=== PATIENT | female | born 1960 | race American Indian/Alaskan Native ===

== ENCOUNTER 2017-03-23 09:31 | Inpatient (IN) | payer MEDICARE ==
[~2017-03-23 09:31] MED LIST: ANCEF/STERILE WATER 2 GM/20 ML 2 GM/20 ML SYRINGE IV NR; APRESOLINE IV PRN; LOVENOX SUB-Q NR; MYLICON PO PRN; REGLAN IV PRN; TRANSDERM-SCOP TD SCH; ZOFRAN IV PRN
[2017-03-23] MEDS: LACTATED RINGERS 1,000 ML IV SCH ×2 (10:25→23:40)
[2017-03-23] MEDS ORDERED: FLAGYL 500 MG/100 ML 500 MG/100 ML BAG IV NR ×2 (10:30→11:00)
[2017-03-23] MEDS ORDERED: PEPCID IV NR (11:00)
[2017-03-23] MEDS ORDERED: XYLOCAINE 1% 20 mL ONE (11:06)
[2017-03-23] MEDS ORDERED: MARCAINE 0.5% 30 ML INFILTRATI ONE (11:07)
--- NOTE | 2017-03-23 11:11 | Anesthesia Consultation ---
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
[2017-03-23] MEDS ORDERED: MORPHINE IV PRN (11:12)
--- NOTE | 2017-03-23 11:12 | Anesthesia Day of Surgery ---
Anesthesia Day of Surgery - Day of Surgery Patient Examined: Yes Patient H&P Reviewed: Yes Patient is NPO: Yes
[2017-03-23] MEDS ORDERED: SUBLIMAZE ONE (11:51)
[2017-03-23] MEDS ORDERED: DIPRIVAN 10 MG/ML IV ONE (11:51)
[2017-03-23] MEDS ORDERED: XYLOCAINE MPF 2% ONE (11:52)
[2017-03-23] MEDS ORDERED: ZOFRAN ONE (11:52)
[2017-03-23] MEDS ORDERED: DECADRON ONE (11:52)
[2017-03-23] MEDS ORDERED: ROBINUL ONE ×2 (11:52)
[2017-03-23] MEDS ORDERED: ZEMURON IV ONE (11:52)
[2017-03-23] MEDS ORDERED: NEOSTIGMINE ONE (11:53)
[2017-03-23] MEDS ORDERED: VERSED IV NR (12:00)
[2017-03-23] MEDS ORDERED: NEO SYNEPHRINE/NS Syringe(OR USE) IV ONE (12:00)
[2017-03-23] MEDS ORDERED: ePHEDrine SULFATE ONE (13:39)
[2017-03-23] MEDS ORDERED: XYLOCAINE 1% 20 mL INFILTRATI ONE (13:51)
[2017-03-23] MEDS ORDERED: NACL 0.9% IR ONE (13:51)
[2017-03-23] MEDS ORDERED: MARCAINE 0.5% INFILTRATI ONE (13:52)
[2017-03-23] MEDS ORDERED: PROAIR IH ONE (13:54)
[2017-03-23] MEDS ORDERED: NACL 0.9% 1000 ML IR ONE (14:31)
[2017-03-23] MEDS ORDERED: TORADOL ONE (14:58)
[2017-03-23] MEDS ORDERED: DILAUDID IV PRN (15:48)
--- NOTE | 2017-03-23 15:58 | Post Anesthesia Evaluation ---
- Post Anesthesia Evaluation Patient Participated: Yes Airway Patent: Yes Stable Respiratory Function: Yes Nausea/Vomiting: No Temp > 96.8F: Yes Pain Manageable: Yes Adequeate Hydration: Yes Anesthesia Complications: No Block Receding Appropriately: Not Applicable Patient on Ventilator: No
[2017-03-23] MEDS: DILAUDID IV PRN ×2 (16:08→16:30)
[2017-03-24] MEDS: LACTATED RINGERS 1,000 ML IV SCH (06:36)
[2017-03-24 09:36] LABS: Basophils % (Auto) 0.4 % (0.0-1.8); Eosinophils % (Auto) 0.2 % (0.0-4.3); Hematocrit 36.7 % (30.3-42.9); Hemoglobin 11.8 gm/dl (10.1-14.3); Mean Corpuscular HGB Conc 32 % (30-34); Mean Corpuscular Hemoglobin 29 pg (28-32); Mean Corpuscular Volume 91 fl (79-97); Platelet Count 349 K/mm3 (140-440); Red Blood Count 4.04 M/mm3 (3.65-5.03); Red Cell Distribution Width 12.8 % (13.2-15.2); White Blood Count 9.4 K/mm3 (4.5-11.0)
[2017-03-24 09:51] LABS: Albumin 3.5 g/dL (3.9-5); Albumin/Globulin Ratio 0.9 %; Alkaline Phosphatase 92 units/L (35-129); Anion Gap 20 mmol/L; BUN/Creatinine Ratio 14; Blood Urea Nitrogen 10 mg/dL (7-17); Calcium 8.9 mg/dL (8.4-10.2); Carbon Dioxide 21 mmol/L (22-30); Chloride 100.8 mmol/L (98-107); Glucose 97 mg/dL (65-100); Potassium 4.8 mmol/L (3.6-5.0); Sodium 137 mmol/L (137-145); Total Protein 7.4 g/dL (6.3-8.2)
[2017-03-24 09:58] LABS: Alanine Aminotransferase 20 units/L (7-56)
[2017-03-24] MEDS ORDERED: LOVENOX SUB-Q SCH (10:00)
[2017-03-24 17:07] VITALS: BP 129/74
--- NOTE | 2017-03-24 17:29 | Discharge Summary ---
Providers - Providers Date of Admission: 03/23/17 09:31 Attending physician: NADER DIAL Primary care physician: [employer] DIRECT[employer] Hospitalization Reason for admission: surgery Procedures: lap gastric bypass Hospital course: 56 y.o. F admitted for laparoscopic gastric bypass. She tolerated the procedure well. On POD 1 she tolerated liquids and her pain was controlled. She denies n/ v. She ambulated well after surgery. She was discharged without issues. Disposition: DC-01 TO HOME OR SELFCARE Core Measure Documentation - Palliative Care Palliative Care/ Comfort Measures: Not Applicable - Core Measures Any of the following diagnoses?: none Exam - Physical Exam Narrative exam: Gen: A+Ox3 resp: equal rise and fall of chest abd: obese, soft, tender at incision sites. no rebound on guarding . incision sites cdi ext: no c/c/e - Constitutional Vitals: Temp Pulse Resp BP Pulse Ox 97.8 F 72 20 129/74 93 03/24/17 16:13 03/24/17 16:13 03/24/17 16:13 03/24/17 16:13 03/24/17 16:13 Plan Activity: other (no lifting >15lbs for 6 weeks ) Diet: clear liquids (sugar free ) Wound: keep clean and dry Additional Instructions: follow up for wellness check Follow up with: LIZA FISH MD [Primary Care Provider] - 7 Days
== END 2017-03-24 18:00 | disposition home or self-care (01) | DRG 327 ==
LOC: 3A 09:31 → 3B-SURG 16:01
PROVIDERS: ADMIT Specialist; ATTEND Specialist
PROC: 0DV64CZ Restriction of Stomach with Extraluminal Device, Percutaneous Endoscopic Approach (ICD-10-PCS; principal; 2017-03-23)
PROC: 0BQT4ZZ Repair Diaphragm, Percutaneous Endoscopic Approach (ICD-10-PCS; 2017-03-23)
PROC: 5A09357 Assistance with Respiratory Ventilation, Less than 24 Consecutive Hours, Continuous Positive Airway Pressure (ICD-10-PCS; 2017-03-23)
DX: K44.9 Diaphragmatic hernia without obstruction or gangrene (principal); Z68.41 Body mass index [BMI] 40.0-44.9, adult; E66.01 Morbid (severe) obesity due to excess calories; G43.909 Migraine, unspecified, not intractable, without status migrainosus; G47.33 Obstructive sleep apnea (adult) (pediatric); I10 Essential (primary) hypertension; M19.90 Unspecified osteoarthritis, unspecified site; F32.9 Major depressive disorder, single episode, unspecified; F41.9 Anxiety disorder, unspecified; E27.9 Disorder of adrenal gland, unspecified; K21.9 Gastro-esophageal reflux disease without esophagitis; Z87.11 Personal history of peptic ulcer disease; Z90.710 Acquired absence of both cervix and uterus; Z88.5 Allergy status to narcotic agent; Z72.89 Other problems related to lifestyle
CPT/HCPCS: 36415; 80053; 85025; 94660; C9250; J0690; J1100; J1170; J1650; J1885; J2250; J2370; J2405; J2704; J2710; J3010; J7030; J7120